=== PATIENT | female | born 1970 | race Caucasian/White ===

== ENCOUNTER 2018-08-04 10:28 | Inpatient (IN) | payer OTHER ==
[~2018-08-04] VITALS: Ht 152.4 cm; Wt 51.2 kg
[2018-08-04 10:35] VITALS: Ht 152.4 cm; Wt 51.2 kg
[2018-08-04 11:42] LABS: PLATELET COUNT 289 x10^3mcL (130-400)
[2018-08-04 11:46] LABS: RED CELL DISTRIBUTION WIDTH 15.1 % (11.5-14.5)
[2018-08-04 11:51] LABS: microscopic required? NO
[2018-08-04 11:56] LABS: BAND NEUTROPHIL 6 % (0-10); BASOPHIL 0 % (0-2); MONOCYTE 2 % (0-7); SEGMENTED NEUTROPHILS 90 % (37-75)
[2018-08-04 11:57] LABS: PLATELET MORPHOLOGY PLATELETS NORMAL; rbc morphology (normal/abnorm) NORMAL (NORMAL)
[2018-08-04 12:22] LABS: UA SPECIFIC GRAVITY 1.015 (1.005-1.035); urine erythrocyte NEGATIVE (NEGATIVE)
[2018-08-04 12:37] LABS: ALBUMIN 3.8 g/dL (3.4-5.0); BILIRUBIN TOTAL 0.61 mg/dL (0.20-1.00); CALCIUM 9.1 mg/dL (8.5-10.1); CARBON DIOXIDE 16.4 mmol/L (21-32); POTASSIUM SERUM 4.1 mmol/L (3.5-5.1); TOTAL PROTEIN, SERUM 7.7 g/dL (6.4-8.2)
[2018-08-04 12:54] LABS: CK-MB 1.1 ng/mL (0-3.6)
[2018-08-04] MEDS ORDERED: HUMULIN R100 U/1 M1 IJ (14:13)
[2018-08-04 15:31] LABS: T3 TOTAL 0.47 ng/mL
[2018-08-04 15:40] LABS: FREE T4 1.12 ng/dL (0.76-1.46); T4(THYROXINE) 5.9 ug/dL (4.7-13.3)
[2018-08-04 15:51] VITALS: BP 108/62
[2018-08-04 16:46] LABS: CALCIUM 8.3 mg/dL (8.5-10.1); CARBON DIOXIDE 21.9 mmol/L (21-32); CREATININE SERUM 1.5 mg/dL (0.6-1.0); MAGNESIUM 2.2 mg/dL (1.8-2.4); POTASSIUM SERUM 3.7 mmol/L (3.5-5.1)
[2018-08-04 19:30] VITALS: BP 122/61
[2018-08-04 20:24] LABS: CALCIUM 8.3 mg/dL (8.5-10.1); CREATININE SERUM 1.3 mg/dL (0.6-1.0); PHOSPHOROUS 2.9 mg/dL (2.5-4.9); POTASSIUM SERUM 4.3 mmol/L (3.5-5.1)
[2018-08-04 23:15] VITALS: BP 129/71
[2018-08-05 00:57] LABS: CALCIUM 8.2 mg/dL (8.5-10.1); CARBON DIOXIDE 19.7 mmol/L (21-32); CREATININE SERUM 1.3 mg/dL (0.6-1.0); PHOSPHOROUS 2.9 mg/dL (2.5-4.9); POTASSIUM SERUM 3.9 mmol/L (3.5-5.1)
[2018-08-05 03:14] VITALS: BP 140/75
[2018-08-05 08:00] VITALS: BP 135/72
[2018-08-05 08:52] LABS: BASOPHIL % 0 % (0-2); PLATELET COUNT 231 x10^3mcL (130-400); RED CELL DISTRIBUTION WIDTH 15.2 % (11.5-14.5)
[2018-08-05 09:35] LABS: CALCIUM 8.1 mg/dL (8.5-10.1); CREATININE SERUM 1.2 mg/dL (0.6-1.0); MAGNESIUM 1.8 mg/dL (1.8-2.4); PHOSPHOROUS 2.6 mg/dL (2.5-4.9); POTASSIUM SERUM 4.2 mmol/L (3.5-5.1)
[2018-08-05 17:18] VITALS: BP 141/67
[2018-08-05 20:46] VITALS: BP 123/57
[2018-08-06 05:04] VITALS: BP 136/64
[2018-08-06 06:46] LABS: BASOPHIL % 0.7 % (0-2); PLATELET COUNT 222 x10^3mcL (130-400)
[2018-08-06 07:02] LABS: CALCIUM 8.3 mg/dL (8.5-10.1); CARBON DIOXIDE 18.2 mmol/L (21-32); CREATININE SERUM 1.1 mg/dL (0.6-1.0); MAGNESIUM 1.9 mg/dL (1.8-2.4); PHOSPHOROUS 2.8 mg/dL (2.5-4.9); POTASSIUM SERUM 3.8 mmol/L (3.5-5.1)
[2018-08-06 09:18] VITALS: BP 117/68
[2018-08-06 17:32] VITALS: BP 142/69
[2018-08-06 20:15] VITALS: BP 126/56
[2018-08-07 05:32] VITALS: BP 108/52
[2018-08-07 06:51] LABS: CALCIUM 7.8 mg/dL (8.5-10.1); CARBON DIOXIDE 13.8 mmol/L (21-32); CREATININE SERUM 1.2 mg/dL (0.6-1.0); POTASSIUM SERUM 3.5 mmol/L (3.5-5.1)
[2018-08-07 07:03] LABS: BASOPHIL % 0.1 % (0-2); PLATELET COUNT 228 x10^3mcL (130-400); RED CELL DISTRIBUTION WIDTH 14.7 % (11.5-14.5)
[2018-08-07 09:08] VITALS: BP 121/62
[2018-08-07 16:01] VITALS: BP 123/58
[2018-08-07 21:51] VITALS: BP 103/46
[2018-08-07 21:55] VITALS: BP 110/56
[2018-08-08 05:18] VITALS: BP 114/42
[2018-08-08 06:55] LABS: BASOPHIL % 0.2 % (0-2); PLATELET COUNT 212 x10^3mcL (130-400)
[2018-08-08 07:10] LABS: CALCIUM 7.7 mg/dL (8.5-10.1); CARBON DIOXIDE 16.5 mmol/L (21-32); CHLORIDE SERUM 104 mmol/L (98-107); GFR1 > 60 mL/min; GLUCOSE SERUM 220 mg/dL (74-106); POTASSIUM SERUM 3.5 mmol/L (3.5-5.1); SODIUM SERUM 138 mmol/L (136-145)
[2018-08-08 07:28] LABS: RED CELL DISTRIBUTION WIDTH 14.6 % (11.5-14.5)
[2018-08-08 10:09] VITALS: BP 107/56
[2018-08-08] MEDS ORDERED: DEXPF IV (14:38)
[2018-08-08] MEDS ORDERED: BG FS (14:38)
[2018-08-08] MEDS ORDERED: PROTONIX40 MG PO (14:39)
[2018-08-08] MEDS ORDERED: HUMULIN R100 U/1 M1 SC (14:39)
[2018-08-08 15:38] VITALS: BP 107/56
== END 2018-08-08 16:35 | DRG 637 ==
LOC: ED 10:28 → IC 13:28 → MU 13:28 → DU 13:28 → IC 14:54 → MU 08-05 12:56
PROVIDERS: Emergency Medicine; Internal Medicine
DX: E10.10 Type 1 diabetes mellitus with ketoacidosis without coma (principal); N17.0 Acute kidney failure with tubular necrosis; K92.0 Hematemesis; E87.0 Hyperosmolality and hypernatremia; E86.0 Dehydration; T38.3X6A Underdosing of insulin and oral hypoglycemic [antidiabetic] drugs, initial encounter; H54.8 Legal blindness, as defined in USA; Z79.4 Long term (current) use of insulin; Z96.41 Presence of insulin pump (external) (internal); Z91.138 Patient's unintentional underdosing of medication regimen for other reason; Y92.009 Unspecified place in unspecified non-institutional (private) residence as the place of occurrence of the external cause
CPT/HCPCS: 36600; 82962; 83880; 84439; 97110-GP; 97535-GP; C9113; J1815; J1956; J2550; J2765; J3490; J7030; Q0092; Q0162

== ENCOUNTER 2018-08-11 18:27 | Inpatient (IN) | payer OTHER ==
[~2018-08-11] VITALS: Ht 152.4 cm; Wt 53.8 kg
[~2018-08-11 18:27] MED LIST: BG FS; DEXPF IV; HUMULIN R100 U/1 M1 IJ; HUMULIN R100 U/1 M1 SC; PROTONIX40 MG PO
[2018-08-11 18:35] VITALS: Ht 152.4 cm; Wt 53.8 kg
[2018-08-11 19:01] LABS: BASOPHIL % 0.8 % (0-2); PLATELET COUNT 284 x10^3mcL (130-400); RED CELL DISTRIBUTION WIDTH 14.4 % (11.5-14.5)
[2018-08-11 19:13] LABS: BILIRUBIN TOTAL 0.5 mg/dL (0.20-1.00); CALCIUM 7.7 mg/dL (8.5-10.1); CARBON DIOXIDE 13.4 mmol/L (21-32); CREATININE SERUM 1.4 mg/dL (0.6-1.0)
[2018-08-11 19:14] LABS: ALBUMIN 2.5 g/dL (3.4-5.0); POTASSIUM SERUM 2.8 mmol/L (3.5-5.1); TOTAL PROTEIN, SERUM 5.6 g/dL (6.4-8.2)
[2018-08-11 21:01] LABS: FREE T4 0.84 ng/dL (0.76-1.46)
[2018-08-11 21:04] LABS: T3 TOTAL 0.51 ng/mL
[2018-08-11 21:05] LABS: FREE THYROXINE INDEX 1.6 ug/dL (1.4-4.5); T4(THYROXINE) 4.5 ug/dL (4.7-13.3)
[2018-08-11 21:07] LABS: MAGNESIUM 1.8 mg/dL (1.8-2.4); PHOSPHOROUS 1.7 mg/dL (2.5-4.9)
[2018-08-11 21:53] VITALS: BP 116/63
[2018-08-12] VITALS (7 sets, daily range): BP systolic 87–120; BP diastolic 46–66
[2018-08-12 01:06] LABS: CALCIUM 7.4 mg/dL (8.5-10.1); CARBON DIOXIDE 18.5 mmol/L (21-32); CREATININE SERUM 1.2 mg/dL (0.6-1.0); POTASSIUM SERUM 3.9 mmol/L (3.5-5.1)
[2018-08-12 02:34] LABS: UA SPECIFIC GRAVITY 1.025 (1.005-1.035); microscopic required? YES; urine erythrocyte 1+ (NEGATIVE)
[2018-08-12 02:46] LABS: AMPHETAMINE QUAL UR NONE DETECTED (See below)
[2018-08-12 05:45] LABS: CALCIUM 7.4 mg/dL (8.5-10.1); CARBON DIOXIDE 18.6 mmol/L (21-32); CREATININE SERUM 1.2 mg/dL (0.6-1.0); POTASSIUM SERUM 3.7 mmol/L (3.5-5.1)
[2018-08-12 08:46] LABS: CALCIUM 7.6 mg/dL (8.5-10.1); CARBON DIOXIDE 22.9 mmol/L (21-32); CREATININE SERUM 1.2 mg/dL (0.6-1.0); POTASSIUM SERUM 3.2 mmol/L (3.5-5.1)
[2018-08-12 08:49] LABS: MAGNESIUM 1.7 mg/dL (1.8-2.4); PHOSPHOROUS 1.6 mg/dL (2.5-4.9)
[2018-08-13 05:22] VITALS: BP 123/63
[2018-08-13 06:14] LABS: BASOPHIL % 1.7 % (0-2)
[2018-08-13 06:21] LABS: CALCIUM 7.6 mg/dL (8.5-10.1); CARBON DIOXIDE 22.8 mmol/L (21-32); CHLORIDE SERUM 106 mmol/L (98-107); CREATININE SERUM 0.9 mg/dL (0.6-1.0); GFR1 > 60 mL/min; GLUCOSE SERUM 72 mg/dL (74-106); MAGNESIUM 1.5 mg/dL (1.8-2.4); PHOSPHOROUS 2.5 mg/dL (2.5-4.9); POTASSIUM SERUM 3.5 mmol/L (3.5-5.1); SODIUM SERUM 137 mmol/L (136-145)
[2018-08-13 07:08] LABS: RED CELL DISTRIBUTION WIDTH 14.9 % (11.5-14.5)
[2018-08-13 08:04] LABS: PLATELET COUNT 278 x10^3mcL (130-400)
[2018-08-13 09:44] VITALS: BP 138/68
[2018-08-13 14:15] VITALS: BP 138/68
== END 2018-08-13 18:10 | DRG 637 ==
LOC: ED 18:27 → IC 20:29 → MU 20:29 → DU 20:29 → IC 21:35 → DU 08-12 15:41 → MU 08-13 00:01
PROVIDERS: Emergency Medicine; Family Medicine; Internal Medicine
DX: E10.10 Type 1 diabetes mellitus with ketoacidosis without coma (principal); N17.0 Acute kidney failure with tubular necrosis; E43 Unspecified severe protein-calorie malnutrition; G93.41 Metabolic encephalopathy; D68.69 Other thrombophilia; E10.42 Type 1 diabetes mellitus with diabetic polyneuropathy; E10.319 Type 1 diabetes mellitus with unspecified diabetic retinopathy without macular edema; E10.43 Type 1 diabetes mellitus with diabetic autonomic (poly)neuropathy; K31.84 Gastroparesis; E83.39 Other disorders of phosphorus metabolism; D53.9 Nutritional anemia, unspecified; R80.9 Proteinuria, unspecified; E87.6 Hypokalemia; D63.8 Anemia in other chronic diseases classified elsewhere; Z96.41 Presence of insulin pump (external) (internal); Z68.23 Body mass index [BMI] 23.0-23.9, adult
CPT/HCPCS: 36600; 82962; 83880; 84439; J1815; J2550; J2765; J3480; J3490; J7030; J7042; Q0092; Q0162

== ENCOUNTER 2019-02-16 14:24 | Inpatient (IN) | payer OTHER ==
[~2019-02-16] VITALS: Ht 152.4 cm; Wt 52.3 kg
[2019-02-16 14:30] VITALS: Ht 152.4 cm; Wt 52.3 kg
[2019-02-16 15:15] LABS: BASOPHIL % 0.3 % (0-2); PLATELET COUNT 298 x10^3mcL (130-400); RED CELL DISTRIBUTION WIDTH 13.8 % (11.5-14.5)
[2019-02-16 15:28] LABS: CALCIUM 9.5 mg/dL (8.5-10.1); CARBON DIOXIDE 17.1 mmol/L (21-32); CHLORIDE SERUM 96 mmol/L (98-107); CREATININE SERUM 1.3 mg/dL (0.6-1.0); GFR1 46 mL/min; GLUCOSE SERUM 278 mg/dL (74-106); POTASSIUM SERUM 4.8 mmol/L (3.5-5.1); SODIUM SERUM 134 mmol/L (136-145)
[2019-02-16 15:35] LABS: ALBUMIN 4.3 g/dL (3.4-5.0); ALKALINE PHOSPHATASE 85 U/L (46-116); ALT/SGPT 20 U/L (14-59); AST/SGOT 18 U/L (15-37); BILIRUBIN TOTAL 0.6 mg/dL (0.20-1.00); CHOLESTEROL 283 mg/dL (<200); TOTAL PROTEIN, SERUM 9.2 g/dL (6.4-8.2)
[2019-02-16 16:02] LABS: UA SPECIFIC GRAVITY >=1.030 (1.005-1.035); microscopic required? YES; urine erythrocyte TRACE (NEGATIVE)
[2019-02-16 16:26] LABS: AMPHETAMINE QUAL UR NONE DETECTED (See below)
[2019-02-16 17:15] LABS: T3 TOTAL 0.83 ng/mL
[2019-02-16 17:17] LABS: FREE T4 1.15 ng/dL (0.76-1.46); FREE THYROXINE INDEX 3.1 ug/dL (1.4-4.5); T4(THYROXINE) 8.6 ug/dL (4.7-13.3)
[2019-02-16 17:21] LABS: MAGNESIUM 1.9 mg/dL (1.8-2.4); PHOSPHOROUS 3.7 mg/dL (2.5-4.9)
[2019-02-16 17:22] LABS: CHOLESTEROL/HDL RATIO 3.8
[2019-02-16 17:50] VITALS: BP 147/69
[2019-02-16 19:14] VITALS: BP 126/54
[2019-02-16 20:35] LABS: CALCIUM 8.2 mg/dL (8.5-10.1); CARBON DIOXIDE 14.8 mmol/L (21-32); CREATININE SERUM 1.1 mg/dL (0.6-1.0); MAGNESIUM 1.7 mg/dL (1.8-2.4); PHOSPHOROUS 3.3 mg/dL (2.5-4.9); POTASSIUM SERUM 4.3 mmol/L (3.5-5.1)
[2019-02-17] VITALS (9 sets, daily range): BP systolic 114–161; BP diastolic 55–77
[2019-02-17 01:09] LABS: CALCIUM 8.1 mg/dL (8.5-10.1); CARBON DIOXIDE 15.3 mmol/L (21-32); CREATININE SERUM 1.1 mg/dL (0.6-1.0); MAGNESIUM 1.6 mg/dL (1.8-2.4); PHOSPHOROUS 3.1 mg/dL (2.5-4.9); POTASSIUM SERUM 4.6 mmol/L (3.5-5.1)
[2019-02-17 04:57] LABS: CALCIUM 8.6 mg/dL (8.5-10.1); CARBON DIOXIDE 16.9 mmol/L (21-32); CHLORIDE SERUM 107 mmol/L (98-107); GFR1 > 60 mL/min; GLUCOSE SERUM 234 mg/dL (74-106); MAGNESIUM 1.6 mg/dL (1.8-2.4); PHOSPHOROUS 2.9 mg/dL (2.5-4.9); SODIUM SERUM 141 mmol/L (136-145)
[2019-02-17 08:37] LABS: CALCIUM 9.3 mg/dL (8.5-10.1); CREATININE SERUM 1.1 mg/dL (0.6-1.0); MAGNESIUM 1.8 mg/dL (1.8-2.4); PHOSPHOROUS 2.7 mg/dL (2.5-4.9); POTASSIUM SERUM 4.6 mmol/L (3.5-5.1)
[2019-02-17 08:49] LABS: PLATELET COUNT 294 x10^3mcL (130-400); RED CELL DISTRIBUTION WIDTH 14.2 % (11.5-14.5)
[2019-02-17 08:50] LABS: BASOPHIL % 0 % (0-2)
[2019-02-17 12:22] LABS: CALCIUM 8.4 mg/dL (8.5-10.1); CARBON DIOXIDE 22.5 mmol/L (21-32); CREATININE SERUM 1.2 mg/dL (0.6-1.0); MAGNESIUM 1.9 mg/dL (1.8-2.4); PHOSPHOROUS 1.8 mg/dL (2.5-4.9)
[2019-02-17 16:35] LABS: CALCIUM 8.4 mg/dL (8.5-10.1); CARBON DIOXIDE 20.4 mmol/L (21-32); CHLORIDE SERUM 106 mmol/L (98-107); CREATININE SERUM 0.9 mg/dL (0.6-1.0); GFR1 > 60 mL/min; GLUCOSE SERUM 191 mg/dL (74-106); MAGNESIUM 1.8 mg/dL (1.8-2.4); PHOSPHOROUS 1.9 mg/dL (2.5-4.9); POTASSIUM SERUM 3.6 mmol/L (3.5-5.1); SODIUM SERUM 139 mmol/L (136-145)
[2019-02-17 20:16] LABS: CALCIUM 8.3 mg/dL (8.5-10.1); CARBON DIOXIDE 23.7 mmol/L (21-32); CHLORIDE SERUM 108 mmol/L (98-107); GFR1 > 60 mL/min; GLUCOSE SERUM 171 mg/dL (74-106); PHOSPHOROUS 2.1 mg/dL (2.5-4.9); POTASSIUM SERUM 3.6 mmol/L (3.5-5.1); SODIUM SERUM 140 mmol/L (136-145)
[2019-02-17 20:31] LABS: MAGNESIUM 1.7 mg/dL (1.8-2.4)
[2019-02-18 00:54] LABS: CARBON DIOXIDE 24.9 mmol/L (21-32); CHLORIDE SERUM 106 mmol/L (98-107); GFR1 > 60 mL/min; GLUCOSE SERUM 142 mg/dL (74-106); MAGNESIUM 1.7 mg/dL (1.8-2.4); PHOSPHOROUS 3.1 mg/dL (2.5-4.9); POTASSIUM SERUM 3.1 mmol/L (3.5-5.1); SODIUM SERUM 139 mmol/L (136-145)
[2019-02-18 04:31] VITALS: BP 151/65
[2019-02-18 04:49] LABS: BASOPHIL % 0.2 % (0-2); PLATELET COUNT 254 x10^3mcL (130-400); RED CELL DISTRIBUTION WIDTH 14.2 % (11.5-14.5)
[2019-02-18 04:58] LABS: CALCIUM 8.1 mg/dL (8.5-10.1); CARBON DIOXIDE 22.6 mmol/L (21-32); CHLORIDE SERUM 106 mmol/L (98-107); CREATININE SERUM 0.9 mg/dL (0.6-1.0); GFR1 > 60 mL/min; GLUCOSE SERUM 176 mg/dL (74-106); MAGNESIUM 1.8 mg/dL (1.8-2.4); PHOSPHOROUS 3.7 mg/dL (2.5-4.9); POTASSIUM SERUM 3.7 mmol/L (3.5-5.1); SODIUM SERUM 140 mmol/L (136-145)
[2019-02-18 08:08] VITALS: BP 149/76
[2019-02-18 12:04] VITALS: BP 139/68
[2019-02-18 17:00] VITALS: BP 160/82
[2019-02-18 21:05] VITALS: BP 122/62
[2019-02-19 05:08] VITALS: BP 149/76
[2019-02-19 06:42] LABS: CALCIUM 7.6 mg/dL (8.5-10.1); CARBON DIOXIDE 28.9 mmol/L (21-32); CHLORIDE SERUM 102 mmol/L (98-107); CREATININE SERUM 0.7 mg/dL (0.6-1.0); GFR1 > 60 mL/min; GLUCOSE SERUM 104 mg/dL (74-106); MAGNESIUM 1.6 mg/dL (1.8-2.4); PHOSPHOROUS 2.8 mg/dL (2.5-4.9); POTASSIUM SERUM 3.3 mmol/L (3.5-5.1); SODIUM SERUM 138 mmol/L (136-145)
[2019-02-19 07:06] LABS: BASOPHIL % 0.3 % (0-2); PLATELET COUNT 247 x10^3mcL (130-400); RED CELL DISTRIBUTION WIDTH 13.9 % (11.5-14.5)
[2019-02-19 08:21] VITALS: BP 125/64
[2019-02-19 12:01] VITALS: BP 136/80
[2019-02-19 16:30] VITALS: BP 149/83
[2019-02-19 20:43] VITALS: BP 149/74
[2019-02-20 05:03] VITALS: BP 130/72
[2019-02-20 06:15] LABS: BASOPHIL % 0.5 % (0-2); CALCIUM 7.9 mg/dL (8.5-10.1); CARBON DIOXIDE 27.2 mmol/L (21-32); CHLORIDE SERUM 99 mmol/L (98-107); CREATININE SERUM 0.8 mg/dL (0.6-1.0); GFR1 > 60 mL/min; GLUCOSE SERUM 191 mg/dL (74-106); PHOSPHOROUS 2.7 mg/dL (2.5-4.9); PLATELET COUNT 240 x10^3mcL (130-400); POTASSIUM SERUM 3.3 mmol/L (3.5-5.1); SODIUM SERUM 135 mmol/L (136-145)
[2019-02-20 08:17] VITALS: BP 129/74
[2019-02-20 10:17] VITALS: BP 129/74
== END 2019-02-20 11:29 | disposition home or self-care (01) | DRG 637 ==
LOC: ED 14:24 → IC 16:03 → MU 02-18 16:37 → IC 02-18 16:55 → MU 02-18 16:58
PROVIDERS: Emergency Medicine; ADMIT Internal Medicine
DX: E10.10 Type 1 diabetes mellitus with ketoacidosis without coma (principal); N17.0 Acute kidney failure with tubular necrosis; T85.694A Other mechanical complication of insulin pump, initial encounter; E87.1 Hypo-osmolality and hyponatremia; E10.21 Type 1 diabetes mellitus with diabetic nephropathy; E10.319 Type 1 diabetes mellitus with unspecified diabetic retinopathy without macular edema; E78.5 Hyperlipidemia, unspecified; R80.9 Proteinuria, unspecified; D72.829 Elevated white blood cell count, unspecified; Z79.4 Long term (current) use of insulin; Z68.21 Body mass index [BMI] 21.0-21.9, adult; Z96.41 Presence of insulin pump (external) (internal)
CPT/HCPCS: 36600; 82962; 84439; C9113; G0480; J1200; J1815; J2405; J2550; J2765; J3475; J3480; J3490; J7030

== ENCOUNTER 2020-09-03 18:50 | Emergency (ER) | payer OTHER ==
[~2020-09-03] VITALS: Ht 152.4 cm; Wt 50.8 kg
[~2020-09-03 18:50] MED LIST changes: +NOVI SQ; +TRESIBA100 UNIT/1
[2020-09-03 18:57] VITALS: Ht 152.4 cm; Wt 50.8 kg
[2020-09-03 19:35] LABS: BASOPHIL % 0.4 % (0-2); PLATELET COUNT 260 x10^3mcL (130-400); RED CELL DISTRIBUTION WIDTH 13.5 % (11.5-14.5)
[2020-09-03 19:36] LABS: CALCIUM 9.1 mg/dL (8.5-10.1); CARBON DIOXIDE 30.4 mmol/L (21-32); CREATININE SERUM 1.1 mg/dL (0.6-1.0); POTASSIUM SERUM 4.5 mmol/L (3.5-5.1)
[2020-09-03 19:40] LABS: ALBUMIN 3.6 g/dL (3.4-5.0); BILIRUBIN TOTAL 0.3 mg/dL (0.20-1.00); TOTAL PROTEIN, SERUM 7.3 g/dL (6.4-8.2)
[2020-09-03 20:49] VITALS: BP 141/71
== END 2020-09-03 20:50 | disposition left against medical advice (07) ==
LOC: ED 18:50 → MU 19:51 → ED 19:51 → MU 20:50
PROVIDERS: Specialist
DX: E11.649 Type 2 diabetes mellitus with hypoglycemia without coma (principal); Z98.890 Other specified postprocedural states; Z88.8 Allergy status to other drugs, medicaments and biological substances; Z90.710 Acquired absence of both cervix and uterus
CPT/HCPCS: 82962

== ENCOUNTER 2020-10-28 12:31 | Emergency (ER) | payer OTHER ==
[~2020-10-28] VITALS: Ht 167.6 cm; Wt 65.8 kg
[2020-10-28 12:44] VITALS: Ht 167.6 cm; Wt 65.8 kg
[2020-10-28 13:22] LABS: CALCIUM 8.8 mg/dL (8.5-10.1); CARBON DIOXIDE 28.5 mmol/L (21-32); CREATININE SERUM 1.1 mg/dL (0.6-1.0); POTASSIUM SERUM 4.9 mmol/L (3.5-5.1)
[2020-10-28 16:22] VITALS: BP 92/59
== END 2020-10-28 16:26 | disposition home or self-care (01) ==
LOC: ED 12:31
PROVIDERS: Emergency Medicine
DX: E11.649 Type 2 diabetes mellitus with hypoglycemia without coma (principal); Z79.4 Long term (current) use of insulin; E11.40 Type 2 diabetes mellitus with diabetic neuropathy, unspecified; F42.9 Obsessive-compulsive disorder, unspecified; Z98.890 Other specified postprocedural states; Z90.89 Acquired absence of other organs; Z88.8 Allergy status to other drugs, medicaments and biological substances
CPT/HCPCS: 82962; J2405; J3490